=== PATIENT | female | born 1975 | race Caucasian/White ===

== ENCOUNTER 2017-06-02 10:30 | Outpatient (CLI) | payer OTHER ==
--- NOTE | 2017-06-02 20:30 | RAD ---
SACRUM AND COCCYX: Date: 06-02-17 FINDINGS: A total of four views are provided. The sacrum appears intact. The arcuate lines of the sacrum appea r normal, as do the SI joints. The lateral views of the coccyx reveal no growth displacement or obvi ous fracture. IMPRESSION: No acute bony finding. POS: HOME
== END 2017-06-02 10:31 | disposition home or self-care (01) ==
LOC: BURRAD 10:30
PROVIDERS: ATTEND Family Medicine
DX: M53.3 Sacrococcygeal disorders, not elsewhere classified (principal)
CPT/HCPCS: 72220